=== PATIENT | female | born 1995 | race Caucasian/White ===

== ENCOUNTER 2017-09-10 12:34 | Emergency (ER) | payer BC ==
--- NOTE | 2017-09-10 14:26 | UC ---
Respiratory Complaint HPI - HPI Summary HPI Summary: Pt presents with dry cough. She tells me that she was diagnosed with the flu earlier this week and took her last dose of tamiflu today. As far as her fever, body aches, and fatigue - these symptoms are improving...but she tells me that she has a history of PNA and her cough and chest tightness feel the same as then. She has an inhaler at home, but is unsure how old/effective it is. She is adamant that she has a "secondary infection going on". Denies chills, SOB, chest pain, abdominal pain, n/v/d/c. - History of Current Complaint Chief Complaint: UCRespiratory Stated Complaint: CHEST CONGESTION Time Seen by Provider: 09/10/17 14:26 Hx Obtained From: Patient Hx Last Menstrual Period: 3 wks ago Onset/Duration: Gradual Onset Timing: Constant Severity Initially: Mild Severity Currently: Mild Pain Intensity: 3 Pain Scale Used: 0-10 Numeric Character: Cough: Nonproductive - Allergies/Home Medications Allergies/Adverse Reactions: Allergies Allergy/AdvReac Type Severity Reaction Status Date / Time No Known Allergies Allergy Verified 09/10/17 14:25 Home Medications: Home Medications Oseltamivir CAP* [Tamiflu CAP*] 1 tab PO DAILY 09/10/17 [History Confirmed 09/10] PMH/Surg Hx/FS Hx/Imm Hx Previously Healthy: Yes Respiratory History: Asthma - Surgical History Surgical History: None - Family History Known Family History: Positive: None - Social History Occupation: Student Lives: Dormitory/Roommates Alcohol Use: Occasionally Substance Use Type: None Smoking Status (MU): Never Smoked Tobacco Review of Systems Constitutional: Fatigue, Other - Body aches Skin: Negative Eyes: Negative ENT: Negative Respiratory: Cough Cardiovascular: Negative Gastrointestinal: Negative Genitourinary: Negative Musculoskeletal: Negative Neurological: Negative Psychological: Negative All Other Systems Reviewed And Are Negative: Yes Physical Exam Triage Information Reviewed: Yes Appearance: Well-Appearing, No Pain Distress, Well-Nourished Vital Signs: Initial Vital Signs Temp 97.8 F 09/10/17 14:22 Pulse 57 09/10/17 14:22 Resp 18 09/10/17 14:22 BP 111/50 09/10/17 14:22 Pulse Ox 100 09/10/17 14:22 Vital Signs Reviewed: Yes Eyes: Positive: Conjunctiva Clear. Negative: Conjunctiva Inflamed, Discharge Neck: Positive: Supple, Nontender, No Lymphadenopathy Respiratory: Positive: Chest non-tender, Lungs clear, No respiratory distress, No accessory muscle use, Wheezing - Mild throughout Cardiovascular: Positive: RRR, No Murmur, Pulses Normal Neurological: Positive: Alert Psychological: Positive: Age Appropriate Behavior Skin: Negative: rashes UC Diagnostic Evaluation - Laboratory O2 Sat by Pulse Oximetry: 100 Re-Evaluation - Re-Evaluation First Eval Change: Improved Comment: Duoneb: Improved lung sounds - no wheezing. Pt reports feeling that her breathing is easier Respiratory Course/Dx - Course Course Of Treatment: CXR: IMPRESSION: NO EVIDENCE FOR ACTIVE CARDIOPULMONARY DISEASE. Duoneb: significant relief s/p duoneb. She is requesting an antibiotic and inhaler. Zpak, albuterol, and prednisone - Differential Dx/Diagnosis Provider Diagnoses: Bronchitis Discharge - Discharge Plan Condition: Stable Disposition: HOME Prescriptions: Albuterol HFA INHALER* [Ventolin HFA Inhaler*] 1 - 2 puff INH Q6H PRN #1 mdi PRN Reason: Cough Azithromycin TAB* [Zithromax TAB (Z-SHANT) 250 mg #6 tabs] 2 tab PO .TODAY, THEN 1 DAILY #1 shant predniSONE TAB* [Deltasone TAB*] 40 mg PO DAILY #10 tab Patient Education Materials: Acute Bronchitis (ED) Referrals: No Primary Care Phys,NOPCP [Primary Care Provider] - Additional Instructions: If you develop a fever, shortness of breath, chest pain, new or worsening symptoms - please call your PCP or go to the ED.
--- NOTE | 2017-09-10 14:52 | RAD ---
INDICATION: Cough. COMPARISON: There are no prior studies available for comparison. TECHNIQUE: Dual-energy PA and lateral views of the chest were obtained. FINDINGS: The heart is within normal limits in size. Mediastinal and hilar contours appear within normal limits. The lungs are clear. No pleural effusion is present. IMPRESSION: NO EVIDENCE FOR ACTIVE CARDIOPULMONARY DISEASE.
[2017-09-10] MEDS ORDERED: Albuterol/Ipratropium NEB.SOL* Albuterol 2.5 MG/Ipratropium 0.5 MG 3 ML INH ONE (14:55)
== END 2017-09-10 15:45 | disposition home or self-care (01) ==
LOC: UCEAST 12:34
DX: J40 Bronchitis, not specified as acute or chronic (principal)
CPT/HCPCS: 71046; 99202; A9270-GY; G0463

== ENCOUNTER 2019-06-09 15:22 | Emergency (ER) | payer BC ==
[2019-06-09 15:49] VITALS: BP 104/68
--- NOTE | 2019-06-09 16:04 | UC ---
Throat Pain/Nasal [place] HPI - HPI Summary HPI Summary: Patient is a 23-year-old [employer] student. Patient states 2 weeks ago she had head congestion postnasal drip congestion that she thought was related to a cold. Patient states she took [id number] Flonase as well as Sudafed that seemed to help. Patient states she was doing well until when she started to get sick again. Patient states since this time she has had a increasing facial pain, green nasal secretions, postnasal drip, fatigue, and tearfulness. Patient's been taking Claritin, Flonase, DayQuil short-term improvement. No documented fevers. Patient did take Motrin this morning that helped a little but with her sinus pressure. Patient denies chest pain or shortness of breath. Patient does have a slight cough that she states is from postnasal drip. Patient states she's been in bed most weak and unable to work on her Mike. Patient with a history of sinus infections and states this feels similar. Patient states she is not . Medications review this visit. - History of Current Complaint Chief Complaint: UCGeneralIllness Stated Complaint: SINUS CONGESTION Time Seen by Provider: 06/09/19 15:47 Hx Obtained From: Patient Hx Last Menstrual Period: 05/26/19 ?: No Severity: Moderate Pain Intensity: 5 Pain Scale Used: 0-10 Numeric Cough: Nonproductive Associated Signs & Symptoms: Positive: Sinus Discomfort, Nasal Discharge - Allergies/Home Medications Allergies/Adverse Reactions: Allergies Allergy/AdvReac Type Severity Reaction Status Date / Time No Known Allergies Allergy Verified 06/09/19 15:49 Home Medications: Home Medications Ibuprofen 400 mg PO DAILY WITH MEAL 06/09/19 [History Confirmed 06/09/19] Norethindrone-E.estradiol-Iron [ 24 1-20 mg-Mcg(24)] 1 tab PO DAILY WITH MEAL 06/09/19 [History Confirmed 06/09/19] PMH/Surg Hx/FS Hx/Imm Hx Previously Healthy: Yes - Surgical History Surgical History: None - Family History Known Family History: Positive: Non-Contributory - Social History Occupation: Student Lives: Dormitory/Roommates Alcohol Use: Weekly Substance Use Type: None Smoking Status (MU): Never Smoked Tobacco Review of Systems All Other Systems Reviewed And Are Negative: Yes Constitutional: Positive: Fatigue ENT: Positive: Sore Throat, Ear Ache, Nasal Discharge, Sinus Congestion, Sinus Pain/Tenderness Respiratory: Positive: Cough Is Patient Immunocompromised?: No Physical Exam - Summary Physical Exam Summary: A+Ox3, no distress, congested Eyes: Conjunctiva Clear, AFTAB. EOM intact and full ENT: Hearing grossly normal fluid b/l TM, no erythema, no buldge, sinuses inflammed and boggy, + PND , no erythema, exudate. uvula midline Neck: Positive: Supple Respiratory: Positive: No respiratory distress, No accessory muscle use + CTA throughout no w/r Cardiovascular: RRR nl s1, s2 no m/r CBT <2 sec abd soft + BS nt/nd no guarding, no distension Musculoskeletal Exam: JORDAN x 4 without difficulty Strength Intact, ROM Intact Neurological: Positive: Alert, + sensation throughout Psychological: Positive: Normal Response To real estate associate attorney Skin: Positive: no rash, no ecchymosis Triage Information Reviewed: Yes Vital Signs: Initial Vital Signs Temp 98.8 F 06/09/19 15:43 Pulse 75 06/09/19 15:43 Resp 18 06/09/19 15:43 BP 104/68 06/09/19 15:43 Pulse Ox 100 06/09/19 15:43 Throat Pain/Nasal Course/Dx - Course Course Of Treatment: Patient presents urgent care with sinus congestion and postnasal drip progressive since . She states she was sick 2 weeks ago and improved and then return. Patient denies fever but states his fatigue. Patient with a slight cough related to postnasal drip. On exam vital signs are stable. Patient sounds congested. Patient with fluid in her right TM but not infected. Patient with thick sinus mucus and congestion with postnasal drip. No exudate or erythema of throat. Lungs are clear. Discussed with patient plan. Recommend patient start antibiotics. Patient states Amoxil makes her stomach upset. We'll try Omnicef. Patient has Flonase. Recommend she continue with decongestant. Reviewed patient secretion precautions. Humidified air. She was house sitting and states she does want humidifier. Follow up with student health. Return precautions. Patient comfortable. We'll also write patient for Diflucan as she states she gets yeast infections with antibiotics. Patient comfortable and in agreement with plan. Note written for classes tomorrow as well as protective extension. Pt declined offer to call parents - Differential Dx/Diagnosis Provider Diagnosis: Rhinosinusitis Discharge ED - Sign-Out/Discharge Documenting (check all that apply): Patient Departure All imaging exams completed and their final reports reviewed: No Studies - Discharge Plan Condition: Stable Disposition: HOME Prescriptions: Cefdinir [Cefdinir 300 MG CAP] 300 mg PO BID #20 capsule Fluconazole 150 MG TAB* [Diflucan 150 MG TAB*] 150 mg PO ONCE PRN #1 tablet PRN Reason: vaginal yeast infection Patient Education Materials: Rhinosinusitis (ED) Forms: *Work Release Referrals: [facility] [Provider Group] No Primary Care Phys,NOPCP [Primary Care Provider] - Additional Instructions: - Stay well hydrated. Drink plenty of non-alcoholic, non-caffinated beverages. - Alternate ibuprofen (Advil, Motrin) 600mg and Tylenol every 3 hours for pain or fever. Take with food. Do NOT take for more than 4-5 days. - These infections are spread by secretions - do NOT share eating or drinking utensils - clean items you share with other people such as cell phones, computer mouse, TV remote, computer tablets,etc. Once you have been antibiotics for 2 days, change your toothbrush and your pillowcase. - get plenty of restful sleep - humidify the air in the room where you sleep - boil water, run a hot steam shower, vaporizer, cups of water by heat register - okay to take over the counter decongestant and cough medication - use nasal spray as current - you have been given the treatment for vaginal yeast infection - okay to take if you develop an infection related to antibiotics - contact your doctor or student health to schedule a followup appointment or with questions or concerns. you have been given the contact information for an watch and clock repair clerk -okay to call if you would like to make an appointment to discuss your seasonal allergy symptoms - Billing Disposition and Condition Condition: STABLE Disposition: Home
== END 2019-06-09 16:36 | disposition home or self-care (01) ==
LOC: UCEAST 15:22
DX: J32.9 Chronic sinusitis, unspecified (principal); R09.82 Postnasal drip; R53.83 Other fatigue
CPT/HCPCS: 99212; G0463

== ENCOUNTER 2019-06-13 10:24 | Emergency (ER) | payer BC ==
[2019-06-13 12:22] VITALS: BP 120/74
--- NOTE | 2019-06-13 12:52 | UC ---
Complaint Female HPI - HPI Summary HPI Summary: Patient is 23-year-old female [place] student presenting with wanting to be tested for chlamydia. Patient states she has had right-sided mid back pain for a week and a half now. Her mother states she had similar pain in college and was diagnosed with chlamydia. Patient notes back pain "feels like it's under her ribs." Notes increased pain with twisting of torso. Denies alleviating factors, including stretching. Notes spotting between periods that is " happening more than usual." Denies urinary symptoms. Denies abnormal discharge. Denies abdominal pain. Denies n/v/d. Denies fever and chills. States she "isn't necessarily concerned for STI exposure, but wants to be tested because of back pain." - History Of Current Complaint Chief Complaint: UCGU Stated Complaint: STD TESTING Hx Obtained From: Patient Hx Last Menstrual Period: 05/30/19 Timing: Constant Severity Currently: Moderate Pain Intensity: 5 Pain Scale Used: 0-10 Numeric - Allergies/Home Medications Allergies/Adverse Reactions: Allergies Allergy/AdvReac Type Severity Reaction Status Date / Time No Known Allergies Allergy Verified 06/13/19 12:22 PMH/Surg Hx/FS Hx/Imm Hx Previously Healthy: Yes - Surgical History Surgical History: None - Family History Known Family History: Positive: None, Non-Contributory - Social History Occupation: Student Lives: Dormitory/Roommates Alcohol Use: Weekly Substance Use Type: None Smoking Status (MU): Never Smoked Tobacco Review of Systems All Other Systems Reviewed And Are Negative: Yes Constitutional: Positive: Negative ENT: Positive: Negative Respiratory: Positive: Negative Cardiovascular: Positive: Negative Gastrointestinal: Positive: Negative. Negative: Abdominal Pain, Vomiting, Nausea Genitourinary: Positive: Abnormal Bleeding - spotting between periods. Negative : Dysuria, Hematuria, Frequency, Urgency, Vaginal/Penile Burning, Vaginal/ Penile Itching, Vaginal/Penile Discharge, Vaginal/Penile Pain, Vaginal/Penile Tenderness, Ulceration/Lesion Musculoskeletal: Positive: Myalgia - mid back pain. Negative: Decreased ROM, Edema Neurological: Positive: Negative Physical Exam Triage Information Reviewed: Yes Appearance: Well-Appearing, No Pain Distress, Well-Nourished Vital Signs: Initial Vital Signs Temp 98.2 F 06/13/19 12:14 Pulse 89 06/13/19 12:14 Resp 18 06/13/19 12:14 BP 120/74 06/13/19 12:14 Pulse Ox 100 06/13/19 12:14 Lab Results 06/13/19 Range/Units 13:10 POC Urine Color Yellow POC Urine Clarity Clear POC Urine pH 6.5 (5-9) POC Ur Specif [place] 1.020 (1.010-1.030) POC Urine Protein Negative (Negative) POC Ur Glucose (UA) Negative (Negative) POC Urine Ketones Negative (Negative) POC Urine Blood 2+ A (Negative) POC Urine Nitrite Negative (Negative) POC Urine Bilirubin Negative (Negative) POC Urine Urobilinogen 0.2 (Negative) POC U Leukocyte Esteras Trace A (Negative) Vital Signs Reviewed: Yes Eyes: Positive: Conjunctiva Clear ENT: Positive: Hearing grossly normal Neck: Positive: Supple Respiratory Exam: Normal Respiratory: Positive: Lungs clear, Normal breath sounds, No respiratory distress. Negative: Crackles, Rhonchi, Stridor, Wheezing Cardiovascular Exam: Normal Cardiovascular: Positive: RRR Abdominal Exam: Normal Abdomen Description: Positive: Nontender, Soft. Negative: CVA Tenderness (R), CVA Tenderness (L) Musculoskeletal: Positive: Strength Intact, ROM Intact, No Edema, Other: - no tenderness to palpation of T spine, R ribs or back muscles Neurological Exam: Other - sensation grossly intact Neurological: Positive: Alert Psychological: Positive: Age Appropriate Behavior Skin Exam: Normal Complaint Female Dx - Course Course Of Treatment: UA positive for blood, attributed to spotting. Patient VS and PE findings normal. Received testing for G/C. She declined other STI testing and pelvic exam. Instructed patient to follow up if pain persists. Patient voiced understanding and agreed with treatment plan. - Differential Dx/Diagnosis Provider Diagnosis: Encounter for screening for bacterial sexually transmitted disease, Acute thoracic back pain Discharge ED - Sign-Out/Discharge Documenting (check all that apply): Patient Departure All imaging exams completed and their final reports reviewed: No Studies - Discharge Plan Condition: Stable Disposition: HOME Patient Education Materials: Sexually Transmitted Diseases (ED), Safe Sex (ED) Referrals: [facility] [Outside] - If Needed Additional Instructions: You have received testing for gonorrhea and chlamydia today. You will be notified with any positive results. It is unclear what is causing your pain today. Continue with stretching, heating pads, and ibuprofen for pain relief. Follow up with the [facility] if your symptoms persist. Go to the emergency room if you experience new or worsening symptoms. - Billing Disposition and Condition Condition: STABLE Disposition: Home - Attestation Statements Provider Attestation: Per institutional requirements, I have reviewed the chart, however, I was not consulted specifically or made aware of this patient by the midlevel provider. I did not personally evaluate, interact with , or disposition this patient.
[2019-06-14 13:14] LABS: Chlamydia trachomatis NAA Negative (Negative); Neisseria gonorrhoeae (GC) NAA Negative (Negative)
== END 2019-06-13 13:26 | disposition home or self-care (01) ==
LOC: UCEAST 10:24
DX: Z11.3 Encounter for screening for infections with a predominantly sexual mode of transmission (principal); M54.6 Pain in thoracic spine
CPT/HCPCS: 81003; 87086; 87491; 87591; 99211; G0463

== ENCOUNTER 2019-09-10 00:40 | Emergency (ER) | payer BC ==
[2019-09-10 00:53] VITALS: BP 115/54
--- NOTE | 2019-09-10 02:00 | ED ---
Laceration/Wound HPI - HPI Summary HPI Summary: 23 year old female presents with laceration to left fourth finger today. States she cut it on a paintings restorer. She cleaned area. It is not actively bleeding. No numbness or tingling. She has full range of motion of her finger. No foreign body in the wound. Tetanus up-to-date. - History of Current Complaint Stated Complaint: FINGER LAC PER PT Time Seen by Provider: 09/10/19 01:37 Hx Last Menstrual Period: 05/30/19 Pain Intensity: 4 - Allergy/Home Medications Allergies/Adverse Reactions: Allergies Allergy/AdvReac Type Severity Reaction Status Date / Time No Known Allergies Allergy Verified 09/10/19 00:52 PMH/Surg Hx/FS Hx/Imm Hx Endocrine/Hematology History: Denies: Hx Diabetes, Hx Thyroid Disease Cardiovascular History: Denies: Hx Hypertension Respiratory History: Reports: Hx Asthma - exercize induced Denies: Hx Chronic Obstructive Pulmonary Disease (COPD) GI History: Denies: Hx Ulcer - Immunization History Immunizations Up to Date: Yes Infectious Disease History: No Infectious Disease History: Denies: Hx Hepatitis, Hx Human Immunodeficiency Virus (HIV), Traveled Outside the [place] in Last 30 Days - Family History Known Family History: Positive: None, Non-Contributory - Social History Alcohol Use: Weekly Substance Use Type: Reports: None Smoking Status (MU): Never Smoked Tobacco Review of Systems Negative: Fever Negative: Chest Pain Negative: Shortness Of Breath Positive: Other - left ring finger laceration All Other Systems Reviewed And Are Negative: Yes Physical Exam Triage Information Reviewed: Yes Vital Signs On Initial Exam: Initial Vitals Temp Pulse Resp BP Pulse Ox 99.6 F 65 15 115/54 100 09/10/19 00:51 09/10/19 00:51 09/10/19 00:51 09/10/19 00:51 09/10/19 00:51 Vital Signs Reviewed: Yes Appearance: Positive: Well-Appearing Skin: Positive: Warm, Dry, Other - 1/2cm superficial laceration to dorsum of left ring finger on middle phalanx Head/Face: Positive: Normal Head/Face Inspection Eyes: Positive: Normal, Conjunctiva Clear ENT: Positive: Pharynx normal Respiratory/Lung Sounds: Positive: Clear to Auscultation, Breath Sounds Present Cardiovascular: Positive: Normal, RRR Musculoskeletal: Positive: Strength/ROM Intact - left hand, Other - good pulses Neurological: Positive: Normal Psychiatric: Positive: Normal Procedures - Sedation Patient Received Moderate/Deep Sedation with Procedure: No - Laceration/Wound Repair 1 Location: Other - left ring finger Description: Irregular Length, Depth and Shape: 1/2cm superficial Irrigated w/ Saline (ccs): 100 Closure: SteriStrips Diagnostics - Vital Signs Vital Signs Temp Pulse Resp BP Pulse Ox 09/10/19 00:51 99.6 F 65 15 115/54 100 - Laboratory Lab Statement: Any lab studies that have been ordered have been reviewed, and results considered in the medical decision making process. Laceration Repair Course/Dx - Course Course Of Treatment: 23 year old female presents with laceration to left fourth finger today. States she cut it on a paintings restorer. She cleaned area. It is not actively bleeding. No numbness or tingling. She has full range of motion of her finger. No foreign body in the wound. Tetanus up-to-date. On exam has a superficial laceration on the dorsum of the finger of middle phalanx. Cleaned are and placed Steri-Strip. told to keep area clean and dry. Patient understands and agrees the plan. - Differential Dx Differental Diagnoses: Abrasion, Avulsion, Laceration - Clinical Impression Provider Diagnoses: Finger laceration Discharge ED - Sign-Out/Discharge Documenting (check all that apply): Patient Departure - Discharge Plan Condition: Good Disposition: HOME Patient Education Materials: Steristrips (ED) Referrals: No Primary Care Phys,NOPCP [Primary Care Provider] - Additional Instructions: Keep dry for 24 hours steristrips will fall off on own Avoid scrubbing area Return to ED if develop any signs of infection or any new or worsening symptoms - Billing Disposition and Condition Condition: GOOD Disposition: Home
== END 2019-09-10 02:11 | disposition home or self-care (01) ==
LOC: ED 00:40
DX: S61.215A Laceration without foreign body of left ring finger without damage to nail, initial encounter (principal); W29.0XXA Contact with powered kitchen appliance, initial encounter; Y92.9 Unspecified place or not applicable
CPT/HCPCS: 99282